=== PATIENT | male | born 1945 | race Caucasian/White ===

== ENCOUNTER 2018-06-23 15:40 | Observation (INO) | payer MEDICARE, BC ==
[2018-06-23 16:26] LABS: CHLORIDE,CL 106 mEq/L (98-106); SODIUM,NA 141 mEq/L (136-145)
[2018-06-23] MEDS ORDERED: Nitroglycerin 0.4 MG Tab.SL SL PRN (17:04)
--- NOTE | 2018-06-23 17:12 | EDM.PDOC ---
ED HPI GENERAL MEDICAL PROBLEM - General Chief Complaint: Neuro Symptoms/Deficits Stated Complaint: tingling to L)face, sharp pain behind L)eye Time Seen by Provider: 06/23/18 16:05 Source of Information: Reports: Patient History Limitations: Reports: No Limitations - History of Present Illness INITIAL COMMENTS - FREE TEXT/NARRATIVE: Ryne is a 72 yo male who presents to the ER via private vehicle with complaints of a sharp pain behind his right eye. States he also had some right sided facial numbness and tingling that lasted approximately 5 min prior to coming in to ER. He felt some right arm and chest discomfort as well. He felt as though he was having difficulty speaking and swallowing. Upon arrival to ER symptoms subsided. He was recently seen a couple days ago at the [facility] for dizziness that has been ongoing for the last month or so. They presribed him Meclizine. Denies any work up completed at the [facility]. Onset: Sudden Onset Date: 06/23/18 Onset Time: 15:30 Duration: Resolved Prior to Arrival Location: Reports: Head, Upper Extremity, Right Quality: Reports: Sharp - Related Data Allergies Allergy/AdvReac Type Severity Reaction Status Date / Time latex Allergy Intermediate Rash Verified 06/23/18 16:10 Home Meds: Home Meds Cholecalciferol (Vitamin D3) [Vitamin D] 2,000 unit PO DAILY 08/20/15 [History] Citalopram [Celexa] 10 mg PO DAILY 08/20/15 [History] Loratadine 10 mg PO BEDTIME 08/20/15 [History] Lutein 40 mg PO DAILY 08/20/15 [History] Nitroglycerin [Nitrostat] 0.4 mg SL ASDIRECTED PRN 08/20/15 [History] Saw [place] 320 mg PO DAILY 08/20/15 [History] Losartan [Cozaar] 50 mg PO DAILY 06/23/18 [History] Lutein Extract/Zeaxanthin Ext [Lutein 15 MG Softgel] 1 tab PO DAILY 06/23/18 [ History] Lysine 500 mg PO DAILY 06/23/18 [History] Metoprolol Succinate [Toprol XL 50mg] 50 mg PO DAILY 06/23/18 [History] Past Medical History Other HEENT History: 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 Cardiovascular History: Reports: Bypass, CAD, High Cholesterol, Hypertension Other Cardiovascular History: CABG Respiratory History: Reports: PE Genitourinary History: Reports: BPH Oncologic (Cancer) History: Reports: Malignant Melanoma, Other (See Below) Other Oncologic History: behind L)eye - Past Surgical History HEENT Surgical History: Reports: Other (See Below) Other HEENT Surgeries/Procedures: prosthetic L)eye Cardiovascular Surgical History: Reports: Carotid Endarterectomy, Coronary Artery Bypass Other Cardiovascular Surgeries/Procedures: quad bypass GI Surgical History: Reports: Hernia, Inguinal Musculoskeletal Surgical History: Reports: Other (See Below) Other Musculoskeletal Surgeries/Procedures:: plantar fasciaitis Social & Family History - Family History Family Medical History: Noncontributory - Tobacco Use Smoking Status *Q: Never Smoker - Caffeine Use Caffeine Use: Reports: None - Recreational Drug Use Recreational Drug Use: No ED ROS GENERAL - Review of Systems Review Of Systems: See Below Constitutional: Denies: Fever, Chills HEENT: Reports: Eye Pain. Denies: Sinus Problem, Vision Change Respiratory: Reports: No Symptoms. Denies: Shortness of Breath Cardiovascular: Reports: Chest Pain, Blood Pressure Problem. Denies: Palpitations GI/Abdominal: Reports: No Symptoms Neurological: Reports: Dizziness, Headache, Tingling (right sided face, has subsided). Denies: Seizure, Syncope, Difficulty Walking, Weakness Psychiatric: Reports: No Symptoms ED EXAM, NEURO - Physical Exam Exam: See Below Exam Limited By: No Limitations General Appearance: Alert, No Apparent Distress Eye Exam: Right Eye: Normal Inspection, PERRL, Left Eye: Abnormal EOM (chronic) Ears: Other (hearing aid) Nose: Normal Inspection, Normal Mucosa, No Blood Throat/Mouth: Normal Inspection, Normal Lips, Normal Teeth, Normal Gums, Normal Oropharynx, Normal Voice, No Airway Compromise Head Exam: Atraumatic, Normocephalic Neck: Normal Inspection, Supple Respiratory/Chest: No Respiratory Distress, Lungs Clear, Normal Breath Sounds, No Accessory Muscle Use Cardiovascular: Regular Rate, Rhythm, No Murmur, Other (no carotid bruit) Neurological: Alert, Normal Mood/Affect, CN II-XII Intact, No Motor/Sensory Deficits, Oriented x 3 Extremities: Normal Inspection, Normal Range of Motion, No Pedal Edema, Normal Capillary Refill Psychiatric: Normal Affect, Normal Mood Skin Exam: Warm, Dry, Intact, Normal Color, No Rash EKG INTERPRETATION Rhythm: NSR Comparison: NA - No Prior EKG Course - Vital Signs Last Recorded V/S: Last Vital Signs Temp 97.2 F 06/23/18 16:00 Pulse 72 06/23/18 16:00 Resp 20 06/23/18 16:00 BP 182/71 H 06/23/18 16:00 Pulse Ox 97 06/23/18 16:00 - Orders/Labs/Meds Orders: Active Orders 24 hr Category Date Time Status Head wo Cont [CT] Stat Exams 06/23/18 15:56 Taken Medication Orders Citalopram Hydrobromide (Celexa) 10 mg PO DAILY [facility] Loratadine (Claritin) 10 mg PO BEDTIME [facility] Nitroglycerin (Nitrostat) 0.4 mg SL ASDIRECTED PRN PRN Reason: Chest Pain Non-Formulary Medication (Losartan [Cozaar]) 50 mg PO DAILY [facility] Non-Formulary Medication (Lysine [Lysine]) 500 mg PO DAILY [facility] Non-Formulary Medication (Metoprolol Succinate [Toprol Xl 50mg]) 50 mg PO DAILY [facility] Non-Formulary Medication (Saw [place] [Saw [place]vue]) 320 mg PO DAILY [facility] Labs: Laboratory Tests 06/23/18 06/23/18 06/23/18 Range/Units 16:05 16:05 16:05 WBC 5.1 (5.0-10.0) 10^3/uL RBC 4.45 L (4.50-6.00) 10^6/uL Hgb 14.4 (14.0-18.0) g/dL Hct 41.5 (40.0-54.0) % MCV 93.3 (82.0-94.0) fL MCH 32.4 H (27.0-32.0) pg MCHC 34.7 (33.0-38.0) g/dL RDW Coeff of Dione 13.3 (11.0-15.0) % Plt Count 162 (150-400) 10^3/uL Neut % (Auto) 53.0 (35-85) % Lymph % (Auto) 32.7 (10-55) % [place] % (Auto) 10.5 (0-16) % Eos % (Auto) 3.0 (0-5) % Baso % (Auto) 0.8 (0-3) % Neut # (Auto) 2.68 (1.80-7.00) 10^3/uL Lymph # (Auto) 1.65 (1.00-4.80) 10^3/uL [place] # (Auto) 0.53 (0.00-0.80) 10^3/uL Eos # (Auto) 0.15 (0.00-0.45) 10^3/uL Baso # (Auto) 0.04 10^3/uL PT 9.5 L (9.7-12.3) SEC INR 0.91 L (0.92-1.18) Sodium 141 (136-145) mEq/L Potassium 4.1 (3.5-5.0) mEq/L Chloride 106 (98-106) mEq/L Carbon Dioxide 29 (21-32) mmol/L BUN 15 (7-18) mg/dL Creatinine 0.9 (0.7-1.3) mg/dL Est Cr Clr Drug Dosing 61.21 mL/min Estimated GFR (MDRD) > 60 (>=60) mL/min Glucose 98 (75-99) mg/dL Calcium 8.5 (8.4-10.1) mg/dL Creatine Kinase 55 (35-232) U/L Troponin I < 0.017 (0.00-0.06) ng/mL Meds: Medications Generic Name Dose Route Start Last Admin Trade Name Freq PRN Reason Stop Dose Admin Citalopram Hydrobromide 10 mg 06/24/18 08:00 Celexa PO DAILY [facility] Loratadine 10 mg 06/23/18 20:00 Claritin PO BEDTIME [facility] Nitroglycerin 0.4 mg 06/23/18 17:04 Nitrostat SL ASDIRECTED PRN Chest Pain Non-Formulary Medication 50 mg 06/24/18 08:00 Losartan [Cozaar] PO DAILY [facility] Non-Formulary Medication 500 mg 06/24/18 08:00 Lysine [Lysine] PO DAILY [facility] Non-Formulary Medication 50 mg 06/24/18 08:00 Metoprolol Succinate [Toprol Xl 50mg] PO DAILY [facility] Non-Formulary Medication 320 mg 06/24/18 08:00 Saw [place] [Saw [place]] PO DAILY [facility] - Re-Assessments/Exams Free Text/Narrative Re-Assessment/Exam: 06/23/18 17:17 Ryne has been asymptomatic in ER. Departure - Departure Time of Disposition: 17:00 Disposition: Refer to Observation Clinical Impression: TIA (transient ischemic attack) - Discharge Information - Problem List & Annotations (1) TIA (transient ischemic attack) SNOMED Code(s): 009941130 Code(s): G45.9 - TRANSIENT CEREBRAL ISCHEMIC ATTACK, UNSPECIFIED Status: Acute Current Visit: Yes - My Orders Last 24 Hours: My Active Orders 06/23/18 15:56 Head wo Cont [CT] Stat - Assessment/Plan Admission H&P: Please use this note as an admission H&P Last 24 Hours: My Active Orders 06/23/18 15:56 Head wo Cont [CT] Stat Plan: Will admit to Dr. Navarro services under observation. Further evaluation with echocardiogram and carotid duplex. Will closely monitor with neurochecks as well. CT scan of the brain was negative for any acute intracranial abnormality.
[2018-06-23] MEDS ORDERED: Acetaminophen 325 MG Tab PO PRN (17:13)
[2018-06-23] MEDS ORDERED: Docusate Sodium 100 MG Cap PO PRN (17:13)
[2018-06-23] MEDS ORDERED: Sodium Chloride 0.9% 10 ML Syringe FLUSH PRN (17:13)
[2018-06-23] MEDS ORDERED: Enoxaparin 40 MG/0.4 ML Syringe SUBCUT SCH ×2 (18:00→20:00)
[2018-06-23] MEDS ORDERED: Loratadine 10 MG Tab PO SCH (20:00)
[2018-06-24] MEDS ORDERED: Non-Formulary Medication 1 Each (Lysine [Lysine] 500 MG) PO SCH (08:00)
[2018-06-24] MEDS ORDERED: SAW PALMETTO 320 MG PO SCH (08:00)
[2018-06-24] MEDS ORDERED: Citalopram 10 MG Tab PO SCH (08:00)
[2018-06-24] MEDS ORDERED: CITALOPRAM 20 MG PO SCH (09:00)
[2018-06-24 11:52] VITALS: BP 152/73
--- NOTE | 2018-06-24 12:48 | PCM.DCSUM1 ---
Discharge Summary - Hospital Course Free Text/Narrative:: Patient was admitted 06/23/18 for observation. He was seen in the ED for stroke like symptoms. He had a negative head CT. His hospital stay has been uneventful. He reports complete resolution of symptoms. He denies any new concerns or complaints. A neurological exam is conducted without any focal deficits. He is advised to rest, hydrate, fu with PCP in 3-5 days, go to ER immediately if change or worse. Patient reports understanding and agreement with plan. He is DC home stable in care of spouse. Diagnosis: Stroke: No Modified [place] Scale: No Symptoms at All Modified [place] Scale Score: 0 - Discharge Data Discharge Date: 06/24/18 Discharge Disposition: Home, Self-Care 01 Condition: Good - Discharge Plan *PRESCRIPTION DRUG MONITORING PROGRAM REVIEWED*: Not Applicable *COPY OF PRESCRIPTION DRUG MONITORING REPORT IN PATIENT FAMILIA: Not Applicable Home Medications: Home Meds Cholecalciferol (Vitamin D3) [Vitamin D] 2,000 unit PO DAILY 08/20/15 [History] Citalopram [Celexa] 10 mg PO DAILY 08/20/15 [History] Loratadine 10 mg PO BEDTIME 08/20/15 [History] Lutein 40 mg PO DAILY 08/20/15 [History] Nitroglycerin [Nitrostat] 0.4 mg SL ASDIRECTED PRN 08/20/15 [History] Losartan [Cozaar] 50 mg PO DAILY 06/23/18 [History] Lutein Extract/Zeaxanthin Ext [Lutein 15 MG Softgel] 1 tab PO DAILY 06/23/18 [ History] Metoprolol Succinate [Toprol XL 50mg] 50 mg PO DAILY 06/23/18 [History] Forms: ED Department Discharge Referrals: Olga Oneal MD [Primary Care Provider] - - Discharge Summary/Plan Comment DC Time >30 min.: No - Patient Data Vitals - Most Recent: Last Vital Signs Temp 37.0 C 06/24/18 11:50 Pulse 58 L 06/24/18 11:50 Resp 18 06/24/18 11:50 BP 152/73 H 06/24/18 11:50 Pulse Ox 98 06/24/18 11:50 Weight - Most Recent: 79.016 kg Lab Results - Last 24 hrs: Laboratory Results - last 24 hr 06/23/18 06/23/18 06/23/18 Range/Units 16:05 16:05 16:05 WBC 5.1 (5.0-10.0) 10^3/uL RBC 4.45 L (4.50-6.00) 10^6/uL Hgb 14.4 (14.0-18.0) g/dL Hct 41.5 (40.0-54.0) % MCV 93.3 (82.0-94.0) fL MCH 32.4 H (27.0-32.0) pg MCHC 34.7 (33.0-38.0) g/dL RDW Coeff of Dione 13.3 (11.0-15.0) % Plt Count 162 (150-400) 10^3/uL Neut % (Auto) 53.0 (35-85) % Lymph % (Auto) 32.7 (10-55) % [place] % (Auto) 10.5 (0-16) % Eos % (Auto) 3.0 (0-5) % Baso % (Auto) 0.8 (0-3) % Neut # (Auto) 2.68 (1.80-7.00) 10^3/uL Lymph # (Auto) 1.65 (1.00-4.80) 10^3/uL [place] # (Auto) 0.53 (0.00-0.80) 10^3/uL Eos # (Auto) 0.15 (0.00-0.45) 10^3/uL Baso # (Auto) 0.04 10^3/uL PT 9.5 L (9.7-12.3) SEC INR 0.91 L (0.92-1.18) Sodium 141 (136-145) mEq/L Potassium 4.1 (3.5-5.0) mEq/L Chloride 106 (98-106) mEq/L Carbon Dioxide 29 (21-32) mmol/L BUN 15 (7-18) mg/dL Creatinine 0.9 (0.7-1.3) mg/dL Est Cr Clr Drug Dosing 61.21 mL/min Estimated GFR (MDRD) > 60 (>=60) mL/min Glucose 98 (75-99) mg/dL Calcium 8.5 (8.4-10.1) mg/dL Creatine Kinase 55 (35-232) U/L Troponin I < 0.017 (0.00-0.06) ng/mL Urine Color (YELLOW) Urine Appearance (CLEAR) Urine pH (4.5-8.0) Ur Specific [place] (1.003-1.020) Urine Protein (NEGATIVE) mg/dL Urine Glucose (UA) (NEGATIVE) mg/dL Urine Ketones (NEGATIVE) mg/dL Urine Occult Blood (NEGATIVE) Urine Nitrite (NEGATIVE) Urine Bilirubin (NEGATIVE) Urine Urobilinogen (0.2-1.0) EU/dL Ur Leukocyte Esterase (NEGATIVE) Urine RBC (0-5) /HPF Urine WBC (0-5) /HPF Ur Squamous Epith Cells (NOT SEEN) /HPF Urine Mucus (NOT SEEN) /HPF 06/23/18 Range/Units 17:13 WBC (5.0-10.0) 10^3/uL RBC (4.50-6.00) 10^6/uL Hgb (14.0-18.0) g/dL Hct (40.0-54.0) % MCV (82.0-94.0) fL MCH (27.0-32.0) pg MCHC (33.0-38.0) g/dL RDW Coeff of Dione (11.0-15.0) % Plt Count (150-400) 10^3/uL Neut % (Auto) (35-85) % Lymph % (Auto) (10-55) % [place] % (Auto) (0-16) % Eos % (Auto) (0-5) % Baso % (Auto) (0-3) % Neut # (Auto) (1.80-7.00) 10^3/uL Lymph # (Auto) (1.00-4.80) 10^3/uL [place] # (Auto) (0.00-0.80) 10^3/uL Eos # (Auto) (0.00-0.45) 10^3/uL Baso # (Auto) 10^3/uL PT (9.7-12.3) SEC INR (0.92-1.18) Sodium (136-145) mEq/L Potassium (3.5-5.0) mEq/L Chloride (98-106) mEq/L Carbon Dioxide (21-32) mmol/L BUN (7-18) mg/dL Creatinine (0.7-1.3) mg/dL Est Cr Clr Drug Dosing mL/min Estimated GFR (MDRD) (>=60) mL/min Glucose (75-99) mg/dL Calcium (8.4-10.1) mg/dL Creatine Kinase (35-232) U/L Troponin I (0.00-0.06) ng/mL Urine Color Yellow (YELLOW) Urine Appearance Clear (CLEAR) Urine pH 6.5 (4.5-8.0) Ur Specific [place] 1.025 H (1.003-1.020) Urine Protein Negative (NEGATIVE) mg/dL Urine Glucose (UA) Negative (NEGATIVE) mg/dL Urine Ketones Negative (NEGATIVE) mg/dL Urine Occult Blood Negative (NEGATIVE) Urine Nitrite Negative (NEGATIVE) Urine Bilirubin Negative (NEGATIVE) Urine Urobilinogen 0.2 (0.2-1.0) EU/dL Ur Leukocyte Esterase Negative (NEGATIVE) Urine RBC Not seen (0-5) /HPF Urine WBC 0-5 (0-5) /HPF Ur Squamous Epith Cells Occasional H (NOT SEEN) /HPF Urine Mucus Occasional H (NOT SEEN) /HPF Med Orders - Current: Current Medications Acetaminophen (Tylenol) 650 mg PO Q4H PRN PRN Reason: Pain (Mild 1-3)/fever Last Admin: 06/23/18 21:29 Dose: 650 mg Docusate Sodium (Colace) 100 mg PO BID PRN PRN Reason: Constipation Enoxaparin Sodium (Lovenox) 40 mg SUBCUT DAILY@1999 [facility] Last Admin: 06/23/18 19:46 Dose: 40 mg Loratadine (Claritin) 10 mg PO BEDTIME [facility] Last Admin: 06/23/18 19:46 Dose: Not Given Nitroglycerin (Nitrostat) 0.4 mg SL ASDIRECTED PRN PRN Reason: Chest Pain (Losartan [Cozaar] (50 Mg)*Pt Own Med*) 50 mg PO DAILY [facility] Last Admin: 06/24/18 09:06 Dose: 50 mg (Metoprolol Succinate 100 Mg)*Pt Own Med* 50 mg PO DAILY [facility] Last Admin: 06/24/18 09:05 Dose: 50 mg Citalopram 20 Mg*Pt (Own Med*) 0 each PO DAILY [facility] Sodium Chloride (Saline Flush) 10 ml FLUSH ASDIRECTED PRN PRN Reason: Keep Vein Open Discontinued Medications Citalopram Hydrobromide (Celexa) 10 mg PO DAILY [facility] Last Admin: 06/24/18 09:26 Dose: Not Given Enoxaparin Sodium (Lovenox) 40 mg SUBCUT Q24H [facility] Last Admin: 06/23/18 18:51 Dose: Not Given Non-Formulary Medication (Lysine [Lysine]) 500 mg PO DAILY [facility] Last Admin: 06/24/18 09:25 Dose: Not Given Non-Formulary Medication (Saw [place] [Saw [place]]) 320 mg PO DAILY [facility] Last Admin: 06/24/18 09:26 Dose: Not Given
== END 2018-06-24 13:24 | disposition home or self-care (01) ==
LOC: CC.ED 15:40 → CC.MS 16:39 → UNDOADMOB 16:39 → CC.MS 17:01 → UNDODISOB 06-24 13:24
PROVIDERS: ADMIT Physician Assistant Medical; ATTEND Family Medicine
DX: G45.9 Transient cerebral ischemic attack, unspecified (principal); I10 Essential (primary) hypertension; I25.10 Atherosclerotic heart disease of native coronary artery without angina pectoris; E78.00 Pure hypercholesterolemia, unspecified; Z79.899 Other long term (current) drug therapy; Z91.040 Latex allergy status
CPT/HCPCS: 36415; 70450; 80048; 81001; 82550; 84484; 85025; 85610; 93005; 99285; A9270; J1650; 96372; G0378

== ENCOUNTER → 2018-12-08 | Day surgery (SDC) | payer MEDICARE, BC ==
[~2018-12-08] MED LIST: Glycopyrrolate 0.2 MG/ML SDV IVPUSH ONE; Lactated Ringers 1,000 ML IV SCH; Propofol 200 MG/20 ML SDV IV ONE
[2018-12-08 11:20] VITALS: BP 129/74
--- NOTE | 2018-12-08 11:33 | OR ---
DATE OF OPERATION: 12/08/2018 PREOPERATIVE DIAGNOSIS: EPIGASTRIC PAIN. POSTOPERATIVE DIAGNOSIS: EPIGASTRIC PAIN. SURGEON: Kevin Vicente MD PROCEDURE: EGD WITH BIOPSIES X3, HUMBERTO. ANESTHESIA: MAC via TIRE INSPECTOR. COMPLICATIONS: None. SPECIMEN: 1. Duodenal bulb biopsy x1. 2. Antral biopsy x2. 3. HUMBERTO. FINDINGS: 1. Full-length EGD. 2. Mild and chronically-appearing gastritis/duodenitis. RECOMMENDATIONS: Ongoing medical followup with [facility]. INDICATIONS: The patient has been having some postprandial epigastric pain and bloating. Lam sent him for EGD. DESCRIPTION OF PROCEDURE: The patient was prepped and draped, placed in the left lateral decubitus position. A lubricated Olympus gastroscope inserted over a bit, advanced to the cricopharyngeus area, and easily intubated into the esophagus. Esophageal lining was benign in its entire course. The Z-line was crisp and sharp at 40 cm. No spontaneous reflux was seen. No distal esophagitis, stricturing, ulceration, or Flores's changes visualized. The scope was advanced into the stomach, through the pylorus, into the second portion of the duodenum. The second portion of duodenum was unremarkable. The bulb had some very mild and chronic-appearing changes of duodenitis, a biopsy was taken. The scope was brought back into the stomach and retroflexed. The upper fundus and cardia were completely benign. Upon straightening, the rest of the fundus appeared unremarkable. Again, there appeared to be maybe some very mild chronic changes of gastritis of the antrum. Two biopsies were taken along with a HUMBERTO. No lesions, masses, ulcerations, or polyps were seen. Air was suctioned, the scope removed without complication. MITCHELL/IVELISSE /[id number]
== END ==
LOC: CC.SDS 09:42
PROVIDERS: ATTEND Family Medicine
DX: R10.13 Epigastric pain (principal); R14.0 Abdominal distension (gaseous); F17.200 Nicotine dependence, unspecified, uncomplicated; Z91.040 Latex allergy status; Z79.82 Long term (current) use of aspirin; Z79.899 Other long term (current) drug therapy
CPT/HCPCS: 87081; 88305; J2704; J3490; J7120

== ENCOUNTER 2022-08-14 16:10 | Emergency (ER) | payer MEDICARE, BC ==
[2022-08-14 17:57] VITALS: BP 133/75; PULSE 71
== END 2022-08-14 19:34 | disposition home or self-care (01) ==
LOC: CC.ED 16:10
DX: K94.23 Gastrostomy malfunction (principal); I25.10 Atherosclerotic heart disease of native coronary artery without angina pectoris; I10 Essential (primary) hypertension; Z91.040 Latex allergy status; Z79.899 Other long term (current) drug therapy; Z79.82 Long term (current) use of aspirin; Z87.891 Personal history of nicotine dependence
CPT/HCPCS: 99282; 99283

== ENCOUNTER 2023-03-10 09:23 | Emergency (ER) | payer MEDICARE, BC ==
[2023-03-10] MEDS ORDERED: Sodium Chloride 0.9% 10 ML Syringe FLUSH PRN (09:37)
[2023-03-10] MEDS ORDERED: Aspirin 81 MG Tab.Chew PO STA (09:38)
[2023-03-10] MEDS ORDERED: Enoxaparin 100 MG/1 ML Syringe SUBCUT STA (09:55)
[2023-03-10] MEDS ORDERED: Nitroglycerin 0.4 MG Tab.SL SL ONE ×2 (09:55→10:05)
[2023-03-10 09:59] LABS: BASOPHILS ABSOLUTE AUTO 0.04 10^3/uL (0.00-0.50); BASOPHILS PERCENT AUTO 0.9 % (0-1); EOSINOPHILS ABSOLUTE AUTO 0.08 10^3/uL (0.00-1.50); EOSINOPHILS PERCENT AUTO 1.8 % (0-6); HEMATOCRIT 41.9 % (42.0-52.0); HEMOGLOBIN 14.9 g/dL (14.0-18.0); IMMATURE GRAN ABSOLUTE AUTO 0.01 10^3/uL (0.00-0.49); IMMATURE GRAN PERCENT AUTO 0.2 % (0.0-4.9); LYMPHOCYTES ABSOLUTE AUTO 1.39 10^3/uL (0.60-5.00); LYMPHOCYTES PERCENT AUTO 31.4 % (24-44); MEAN CORPUSCULAR HEMOGLOBIN 31.3 pg (27.0-32.0); MEAN CORPUSCULAR HGB CONC 35.6 g/dL (32.0-36.0); MONOCYTES ABSOLUTE AUTO 0.37 10^3/uL (0.00-1.50); MONOCYTES PERCENT AUTO 8.4 % (0-10); NEUTROPHILS ABSOLUTE AUTO 2.54 x10^3/uL (1.80-8.00); NEUTROPHILS PERCENT AUTO 57.3 % (41-71); PLATELET COUNT,PLT 166 10^3/uL (150-400); RED BLOOD CELL COUNT 4.76 x10^6/uL (4.50-6.00); WHITE BLOOD CELL COUNT,WBC 4.4 10^3/uL (4.0-11.0)
[2023-03-10 10:14] LABS: INR 0.95 (0.92-1.18); PROTHROMBIN TIME 9.8 SEC (9.3-11.3); PTT,PARTIAL THROMBOPLSTIN TIME 24.1 SEC (20.0-30.0)
[2023-03-10 10:46] LABS: ALBUMIN 3.8 g/dL (3.4-5.0); CALCIUM 8.8 mg/dL (8.4-10.1); CREATININE 1.1 mg/dL (0.7-1.3); EST CRCL DRUG DOSING (CG) 46.34 mL/min
[2023-03-10 10:47] LABS: MAGNESIUM 1.9 mg/dL (1.8-2.4); POTASSIUM,K 3.7 mEq/L (3.5-5.0); PROTEIN TOTAL,TP 7.4 g/dL (6.4-8.2)
[2023-03-10 11:03] LABS: BILIRUBIN TOTAL 0.5 mg/dL (0.0-1.0)
[2023-03-10 11:19] VITALS: BP 118/70; PULSE 60
== END 2023-03-10 11:25 ==
LOC: CC.ED 09:23
DX: I21.3 ST elevation (STEMI) myocardial infarction of unspecified site (principal); I25.10 Atherosclerotic heart disease of native coronary artery without angina pectoris; E78.00 Pure hypercholesterolemia, unspecified; I10 Essential (primary) hypertension; Z91.040 Latex allergy status; Z79.82 Long term (current) use of aspirin; Z95.1 Presence of aortocoronary bypass graft; Z86.73 Personal history of transient ischemic attack (TIA), and cerebral infarction without residual deficits; Z87.891 Personal history of nicotine dependence
CPT/HCPCS: 36415; 71046; 80053; 82150; 83690; 83735; 84484; 85025; 85610; 85730; 93005; 93010; 96372; 99284; 99285; A9270-GY; J1650

== ENCOUNTER 2023-07-27 21:44 | Inpatient (IN) | payer MEDICARE, BC ==
[2023-07-27] MEDS ORDERED: Sodium Chloride 0.9% 10 ML Syringe FLUSH PRN (22:06)
[2023-07-27 22:21] LABS: BASOPHILS ABSOLUTE AUTO 0.04 10^3/uL (0.00-0.50); BASOPHILS PERCENT AUTO 0.4 % (0-1); EOSINOPHILS PERCENT AUTO 1.1 % (0-6); HEMOGLOBIN 15.3 g/dL (14.0-18.0); IMMATURE GRAN ABSOLUTE AUTO 0.02 10^3/uL (0.00-0.49); IMMATURE GRAN PERCENT AUTO 0.2 % (0.0-4.9); LYMPHOCYTES ABSOLUTE AUTO 1.28 10^3/uL (0.60-5.00); LYMPHOCYTES PERCENT AUTO 14.2 % (24-44); MEAN CORPUSCULAR HEMOGLOBIN 31.7 pg (27.0-32.0); MEAN CORPUSCULAR HGB CONC 36.4 g/dL (32.0-36.0); MEAN CORPUSCULAR VOLUME 87.1 fL (83.0-97.0); MONOCYTES ABSOLUTE AUTO 0.67 10^3/uL (0.00-1.50); MONOCYTES PERCENT AUTO 7.4 % (0-10); NEUTROPHILS PERCENT AUTO 76.7 % (41-71); PLATELET COUNT,PLT 142 10^3/uL (150-400); RED BLOOD CELL COUNT 4.82 x10^6/uL (4.50-6.00)
[2023-07-27 22:22] LABS: APPEARANCE,URINE CLEAR (CLEAR); BILIRUBIN,URINE NEGATIVE (NEGATIVE); COLOR,URINE YELLOW (YELLOW); GLUCOSE,URINE NEGATIVE (NEGATIVE); KETONES,URINE NEGATIVE (NEGATIVE); LEUKOCYTE ESTERASE,URINE NEGATIVE (NEGATIVE); NITRITE,URINE NEGATIVE (NEGATIVE); OCCULT BLOOD,URINE NEGATIVE (NEGATIVE); PH,URINE 5.5 (4.5-8.0); PROTEIN,URINE NEGATIVE (NEGATIVE); UROBILINOGEN,URINE 0.2 EU/dL (0.2-1.0)
[2023-07-27] MEDS ORDERED: Iopamidol 755 Mg/ML 100 ML Bottle IVPUSH ONE (22:28)
[2023-07-27 22:34] LABS: ALANINE AMINOTRANSFERASE,ALT 25 U/L (12-78); ALBUMIN 4.4 g/dL (3.4-5.0); ALKALINE PHOSPHATASE 102 U/L (46-116); ASPARTATE AMNIOTRANSFERASE,AST 22 U/L (15-37); BILIRUBIN TOTAL 0.8 mg/dL (0.0-1.0); BLOOD UREA NITROGEN,BUN 12 mg/dL (7-18); CALCIUM 9.5 mg/dL (8.4-10.1); CARBON DIOXIDE,CO2 29 mmol/L (21-32); CHLORIDE,CL 99 mEq/L (98-106); CREATININE 0.9 mg/dL (0.7-1.3); GLUCOSE RANDOM 119 mg/dL (75-99); LIPASE 23 U/L (16-77); POTASSIUM,K 4.3 mEq/L (3.5-5.0); PROTEIN TOTAL,TP 7.8 g/dL (6.4-8.2); SODIUM,NA 137 mEq/L (136-145)
[2023-07-27] MEDS ORDERED: HYDROmorphone 0.5 MG/0.5 ML Syringe IVPUSH ONE (22:43)
[2023-07-27 22:44] LABS: C-REACTIVE PROTEIN < 0.30 mg/dL (<=0.30); ESTIMATED GFR 87 mL/min (>=60)
[2023-07-28] MEDS ORDERED: Temazepam 15 MG Cap PO PRN (00:23)
[2023-07-28] MEDS ORDERED: Ondansetron 4 MG/2 ML SDV IV PRN (00:23)
[2023-07-28] MEDS: Sodium Chloride 0.9% 1,000 ML IV SCH ×4 (00:41→20:01)
[2023-07-28] MEDS: HYDROmorphone 1 MG/ML Syringe IVPUSH PRN ×2 (03:23→07:24)
[2023-07-28] MEDS: Aspirin 81 MG Tab.EC PO SCH (07:28)
[2023-07-28] MEDS: Citalopram 10 MG Tab PO SCH (07:28)
[2023-07-28] MEDS: Isosorbide Mononitrate 30 MG Tab.ER PO SCH (07:28)
[2023-07-28] MEDS: Simvastatin 40 MG Tab PO SCH (07:29)
[2023-07-28] MEDS: Clopidogrel 75 MG Tab PO SCH (07:29)
[2023-07-28] MEDS: Enoxaparin 40 MG/0.4 ML Syringe SUBCUT SCH (07:29)
[2023-07-28] MEDS: Carvedilol 3.125 MG Tab PO SCH ×2 (07:32→19:40)
[2023-07-28 08:16] LABS: BASOPHILS ABSOLUTE AUTO 0.04 10^3/uL (0.00-0.50); BASOPHILS PERCENT AUTO 0.6 % (0-1); EOSINOPHILS ABSOLUTE AUTO 0.13 10^3/uL (0.00-1.50); HEMATOCRIT 40.8 % (42.0-52.0); HEMOGLOBIN 14.5 g/dL (14.0-18.0); IMMATURE GRAN ABSOLUTE AUTO 0.01 10^3/uL (0.00-0.49); IMMATURE GRAN PERCENT AUTO 0.2 % (0.0-4.9); LYMPHOCYTES ABSOLUTE AUTO 1.43 10^3/uL (0.60-5.00); LYMPHOCYTES PERCENT AUTO 22.3 % (24-44); MEAN CORPUSCULAR HEMOGLOBIN 31.2 pg (27.0-32.0); MEAN CORPUSCULAR HGB CONC 35.5 g/dL (32.0-36.0); MEAN CORPUSCULAR VOLUME 87.7 fL (83.0-97.0); MONOCYTES ABSOLUTE AUTO 0.66 10^3/uL (0.00-1.50); MONOCYTES PERCENT AUTO 10.3 % (0-10); NEUTROPHILS ABSOLUTE AUTO 4.15 x10^3/uL (1.80-8.00); NEUTROPHILS PERCENT AUTO 64.6 % (41-71); PLATELET COUNT,PLT 147 10^3/uL (150-400); RED BLOOD CELL COUNT 4.65 x10^6/uL (4.50-6.00); WHITE BLOOD CELL COUNT,WBC 6.4 10^3/uL (4.0-11.0)
[2023-07-28 08:23] LABS: C-REACTIVE PROTEIN 0.23 mg/dL (<=0.30); CALCIUM 8.7 mg/dL (8.4-10.1); CREATININE 0.9 mg/dL (0.7-1.3); EST CRCL DRUG DOSING (CG) 56.64 mL/min; POTASSIUM,K 4.7 mEq/L (3.5-5.0)
[2023-07-29] MEDS: Sodium Chloride 0.9% 1,000 ML IV SCH (06:07)
[2023-07-29] MEDS: Citalopram 10 MG Tab PO SCH (07:49)
[2023-07-29] MEDS: Simvastatin 40 MG Tab PO SCH (07:49)
[2023-07-29] MEDS: Aspirin 81 MG Tab.EC PO SCH (07:49)
[2023-07-29] MEDS: Carvedilol 3.125 MG Tab PO SCH (07:50)
[2023-07-29] MEDS: Clopidogrel 75 MG Tab PO SCH (07:50)
[2023-07-29 07:51] VITALS: BP 136/56; PULSE 60
[2023-07-29] MEDS: Isosorbide Mononitrate 30 MG Tab.ER PO SCH (07:51)
[2023-07-29] MEDS: Enoxaparin 40 MG/0.4 ML Syringe SUBCUT SCH (07:51)
[2023-07-29 08:07] LABS: C-REACTIVE PROTEIN 1.04 mg/dL (<=0.30); CALCIUM 8.1 mg/dL (8.4-10.1); CREATININE 0.9 mg/dL (0.7-1.3); EST CRCL DRUG DOSING (CG) 56.64 mL/min; POTASSIUM,K 3.8 mEq/L (3.5-5.0)
[2023-07-29 08:32] LABS: BASOPHILS ABSOLUTE AUTO 0.03 10^3/uL (0.00-0.50); BASOPHILS PERCENT AUTO 0.7 % (0-1); EOSINOPHILS PERCENT AUTO 4.6 % (0-6); HEMATOCRIT 37.1 % (42.0-52.0); HEMOGLOBIN 13.3 g/dL (14.0-18.0); IMMATURE GRAN ABSOLUTE AUTO 0.01 10^3/uL (0.00-0.49); IMMATURE GRAN PERCENT AUTO 0.2 % (0.0-4.9); LYMPHOCYTES ABSOLUTE AUTO 1.27 10^3/uL (0.60-5.00); LYMPHOCYTES PERCENT AUTO 29.1 % (24-44); MEAN CORPUSCULAR HEMOGLOBIN 31.4 pg (27.0-32.0); MEAN CORPUSCULAR HGB CONC 35.8 g/dL (32.0-36.0); MEAN CORPUSCULAR VOLUME 87.5 fL (83.0-97.0); MONOCYTES ABSOLUTE AUTO 0.44 10^3/uL (0.00-1.50); MONOCYTES PERCENT AUTO 10.1 % (0-10); NEUTROPHILS ABSOLUTE AUTO 2.42 x10^3/uL (1.80-8.00); NEUTROPHILS PERCENT AUTO 55.3 % (41-71); PLATELET COUNT,PLT 119 10^3/uL (150-400); RED BLOOD CELL COUNT 4.24 x10^6/uL (4.50-6.00); WHITE BLOOD CELL COUNT,WBC 4.4 10^3/uL (4.0-11.0)
== END 2023-07-29 11:07 | disposition home or self-care (01) | DRG 390 ==
LOC: CC.ED 21:44 → CC.MS 23:48 → UNDOADMIN 07-28 00:18 → CC.MS 07-28 00:18
PROVIDERS: ADMIT Nurse Practitioner Family; ATTEND Nurse Practitioner Family
DX: K56.51 Intestinal adhesions [bands], with partial obstruction (principal); I10 Essential (primary) hypertension; I25.10 Atherosclerotic heart disease of native coronary artery without angina pectoris; E78.00 Pure hypercholesterolemia, unspecified; H54.62 Unqualified visual loss, left eye, normal vision right eye; N40.0 Benign prostatic hyperplasia without lower urinary tract symptoms; Z91.040 Latex allergy status; Z79.82 Long term (current) use of aspirin; Z79.02 Long term (current) use of antithrombotics/antiplatelets; Z79.899 Other long term (current) drug therapy; Z95.1 Presence of aortocoronary bypass graft; Z86.73 Personal history of transient ischemic attack (TIA), and cerebral infarction without residual deficits; Z86.711 Personal history of pulmonary embolism; Z85.840 Personal history of malignant neoplasm of eye; Z98.890 Other specified postprocedural states; Z85.820 Personal history of malignant melanoma of skin
CPT/HCPCS: 36415; 74177; 80053; 81003; 83690; 85025; 86140; 96374; 99285; J1170; Q9967; 80048; A9270-GY; J1650; J7030

== ENCOUNTER 2023-07-30 20:59 | Emergency (ER) | payer MEDICARE, BC ==
[2023-07-30] MEDS ORDERED: Sodium Chloride 0.9% 10 ML Syringe FLUSH PRN (21:12)
[2023-07-30] MEDS ORDERED: Iopamidol 755 Mg/ML 100 ML Bottle IVPUSH ONE (21:21)
[2023-07-30 21:32] LABS: BASOPHILS ABSOLUTE AUTO 0.05 10^3/uL (0.00-0.50); BASOPHILS PERCENT AUTO 0.8 % (0-1); EOSINOPHILS ABSOLUTE AUTO 0.15 10^3/uL (0.00-1.50); EOSINOPHILS PERCENT AUTO 2.4 % (0-6); HEMATOCRIT 35.1 % (42.0-52.0); HEMOGLOBIN 12.9 g/dL (14.0-18.0); IMMATURE GRAN ABSOLUTE AUTO 0.01 10^3/uL (0.00-0.49); IMMATURE GRAN PERCENT AUTO 0.2 % (0.0-4.9); LYMPHOCYTES ABSOLUTE AUTO 1.14 10^3/uL (0.60-5.00); LYMPHOCYTES PERCENT AUTO 18.2 % (24-44); MEAN CORPUSCULAR HEMOGLOBIN 31.6 pg (27.0-32.0); MEAN CORPUSCULAR HGB CONC 36.8 g/dL (32.0-36.0); MONOCYTES ABSOLUTE AUTO 0.57 10^3/uL (0.00-1.50); MONOCYTES PERCENT AUTO 9.1 % (0-10); NEUTROPHILS ABSOLUTE AUTO 4.33 x10^3/uL (1.80-8.00); NEUTROPHILS PERCENT AUTO 69.3 % (41-71); PLATELET COUNT,PLT 129 10^3/uL (150-400); RED BLOOD CELL COUNT 4.08 x10^6/uL (4.50-6.00); WHITE BLOOD CELL COUNT,WBC 6.3 10^3/uL (4.0-11.0)
[2023-07-30] MEDS ORDERED: Aluminum Hydroxide/Magnesium Hydroxide/Simethicone Susp 30 ML Cup PO ONE (21:43)
[2023-07-30 21:46] LABS: ALBUMIN 3.5 g/dL (3.4-5.0); BILIRUBIN TOTAL 0.6 mg/dL (0.0-1.0); C-REACTIVE PROTEIN 0.27 mg/dL (<=0.30); CALCIUM 8.9 mg/dL (8.4-10.1); CREATININE 1.1 mg/dL (0.7-1.3); EST CRCL DRUG DOSING (CG) 46.34 mL/min; MAGNESIUM 1.9 mg/dL (1.8-2.4); PROTEIN TOTAL,TP 6.6 g/dL (6.4-8.2)
[2023-07-30] MEDS ORDERED: Simethicone 80 MG Tab.Chew PO ONE (22:01)
[2023-07-30] MEDS ORDERED: Morphine 2 MG/ML SYRINGE IVPUSH ONE (22:33)
[2023-07-30 23:57] VITALS: BP 165/79; PULSE 63
[2023-07-30] MEDS ORDERED: HYDROmorphone 0.5 MG/0.5 ML Syringe IVPUSH ONE (23:59)
== END 2023-07-31 00:33 | disposition home or self-care (01) ==
LOC: CC.ED 20:59
DX: R12 Heartburn (principal); I25.10 Atherosclerotic heart disease of native coronary artery without angina pectoris; E78.00 Pure hypercholesterolemia, unspecified; I10 Essential (primary) hypertension; Z91.040 Latex allergy status; Z79.899 Other long term (current) drug therapy; Z79.82 Long term (current) use of aspirin
CPT/HCPCS: 36415; 71046; 74177; 80053; 83690; 83735; 84484; 85025; 86140; 93005; 93010; 96374; 96375; 99284; 99285-25; A9270-GY; J1170; J2270; Q9967